=== PATIENT | male | born 1955 | race Caucasian/White ===

== ENCOUNTER 2016-06-30 06:28 | Inpatient (IN) ==
[2016-06-30] MEDS ORDERED: Lidocaine -MPF 1% 2 ML VIAL ID ONE (07:07)
[2016-06-30] MEDS ORDERED: CeFAZolin Pre 2,000 MG/100 ML 2,000 MG/100 ML BAG IVPB ONE (07:07)
[2016-06-30] MEDS ORDERED: Albuterol 2.5 MG/3 ML NEBULIZER IH ONE (07:07)
[2016-06-30] MEDS ORDERED: Albuterol 2.5 MG/3 ML NEBULIZER ONE (07:11)
[2016-06-30] MEDS ORDERED: Ringers Solution, Lactated 1,000 ML IVC SCH ×2 (07:15→11:50)
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
--- NOTE | 2016-06-30 07:37 | History & Physical Report ---
Date of Encounter: 06/30/16 Time of Encounter: 07:36 24 Hour HP Update - Instructions Instructions: If the History and Physical is less than 30 days old and was completed prior to A.M. admission and or procedure and has NOT been updated on calendar day of procedure please complete this update prior to performing procedure. - Update Patient reports changes in Medical Condition: No Changes in examination, assessment, or condition: No Changes in Medication: No Preop tests/diagnostics Reviewed: Yes Pre-Op MRSA Screen: Negative Surgery Remains Indicated: Yes Consent for Planned Operative Procedure(s) Verified: Yes - Pre-Operative Checklist Preoperative Checklist Indicated: No Prophylactic Antibiotic Ordered: Yes Home Medications Include Beta Bela: No Beta Bela Taken Today (Day of Surgery): No Beta Bela Taken Yesterday (Day Prior to Surgery): No Is VTE Prophylaxis Indicated?: Yes
[2016-06-30] MEDS ORDERED: Acetaminophen IV 1,000 MG/100 ML INFUS..BTL ONE (07:52)
[2016-06-30] MEDS ORDERED: *HR* HYDROmorphone (PF) 1 MG/ML SYRINGE IVP PRN (08:36)
[2016-06-30] MEDS ORDERED: Ondansetron 4 MG/2 ML VIAL IVP PRN (08:36)
[2016-06-30] MEDS ORDERED: Propofol 500 MG/50 ML INFUS..BTL ONE ×2 (09:30)
[2016-06-30] MEDS ORDERED: EPHEDrine 50 MG/ML VIAL ONE (09:30)
[2016-06-30] MEDS ORDERED: *HR* Midazolam HCl 2 MG/2 ML VIAL ONE (09:30)
[2016-06-30] MEDS ORDERED: Lidocaine -MPF 2% 2 ML VIAL ONE (09:30)
[2016-06-30] MEDS ORDERED: *HR* FentaNYL (PF) 100 MCG/2 ML VIAL ONE (09:30)
[2016-06-30] MEDS ORDERED: *HR* Propofol 200 MG/20 ML VIAL IVP ONE (09:30)
[2016-06-30] MEDS ORDERED: *HR* Succinylcholine 200 MG/10 ML VIAL IVP ONE (09:30)
[2016-06-30] MEDS ORDERED: *HR* Remifentanil 1 MG VIAL IVP ONE (09:30)
[2016-06-30] MEDS ORDERED: *HR* Phenylephrine 10 MG/ML VIAL ONE (09:30)
[2016-06-30] MEDS ORDERED: Ondansetron 4 MG/2 ML VIAL ONE (10:42)
--- NOTE | 2016-06-30 10:49 | Orthopedic Operative Note ---
Date of procedure: 06/30/16 Pre-op diagnosis: Cervical stenosis, cervical radiculopathy, cervical myelopathy Post-op diagnosis: same Operation/Findings: Anterior cervical decompression and fusion C3-C5:The patient was brought to the operating room and placed supine on the operating room table. Successful general endotracheal anesthesia intubation was performed. Neurophysiologic monitoring personnel placed leads on the upper and lower extremities as well as the cranium for EMG monitoring purposes. Appropriate baseline potentials were noted by the neurophysiologic monitoring staff. Navarrete catheter was placed prior to positioning. Compression boots and stockings were placed for deep vein thrombosis prophylaxis. Padding was were also placed all bony prominences including the ulnar nerve near the medial epicondyles of the elbows were appropriately padded. Mild traction was placed on the bilateral shoulders and taped into place. Preoperative antibiotics were administered. The area from the mandible bilaterally to the upper thoraces was prepped and draped in the usual sterile fashion. A transverse incision was made 2 cm proximal to the level of the cricoid cartilage which is approximately 3 cm in length and extended from the midline of the cervical spine laterally towards the sternocleidomastoid muscle on the left. We then performed standard medial approach to the carotid sheath. Sponges were used to tease the fascial medial to the sternocleidomastoid muscle while carefully controlling and palpating the carotid artery. Using careful dissection we were able to get to the level of the anterior vertebral bodies and longus coli muscles. The spinal needle was placed at the appropriate C3-4 level, and intraoperative radiograph was obtained which was a cervical spine lateral radiograph. The needle and radiograph confirmed we were at the correct C3-4 operative level. We further exposed this level by using Bovie cautery under the medial edge of the longus colli muscles to allow them to be retracted approximately 2 mm laterally on each side. An 11 blade was used to perform anterior discectomy at the appropriate C3-4 level after an initial annulotomy of the anterior longitudinal ligament and annulus was performed. Further disc material was removed with pituitary Rongeurs. Subsequently, Synthes pins were placed at the C3and C4 vertebral bodies respectively to provide distraction. We then used a Trimline cervical retractor which was placed in both medial and lateral as well as inferior superior direction to allow full visualization of the appropriate C3-4 disc and C3 and C4 vertebral bodies. The Leica microscope was brought to the field and the remainder of the procedure was performed under the guidance of this microscope. Using pituitary rongeurs and small curettes, various micro- instruments, a full discectomy was performed at the appropriate C3-4 level. The posterior longitudinal ligament was encountered and appeared partially calcified. A portion of this ligament was removed. After complete and thorough discectomy and removal of spondylitic material was performed the endplates of the C3 and C4 vertebral bodies were prepared with a bur until allow bleeding of cancellous bone. A 8mm trial graft was evaluated and appeared to fit quite well within the excised C3-4 disc space. A cortico- cancellous allograft of 8 mm was utilized, carefully tapped into place within the excised disc space with the aid of a bone tamp. It was seated approximately 2 mm from the anterior edge of the cortex of the adjacent vertebral bodies. We then turned our attention to the C4- 5 level where a similar series of procedures was performed including discectomy, removal of spondylitic material, end plate preparation, and trial grafting. A 7mm trial fit well within the C4-5 disc space. A 7 mm allograft was then placed at C4-5. A 42.5 mm cervical plate was then placed on the anterior aspect of the C3, C4 , and C5 vertebral bodies. The plate was placed in the midline position after drilling six 13 mm self tapping screws and inserting them. They were locked in place using standard Venture plate maneuvers. At this point a lateral radiograph of the cervical spine was obtained and showed satisfactory position of the graft and plate. The wound was copiously irrigated and bleeders encountered were cauterized using Bovie cautery. Platysma was closed with interrupted 2-0 Vicryl sutures. Running 3-0 Monocryl suture was used for skin closure. Sterile dressing was placed over the neck wound. A cervical collar was placed. The patient was transferred to a hospital bed and extubated. The patient was noted to be fully motor and sensory intact in the recovery room at the end of the procedure. The medications. All sponge instrument and needle counts were correct at the end of the procedure. Anesthesia: GETA Surgeon: Matthew Penaloza Jr Estimated blood loss (cc): 30 Condition: stable Disposition: PACU
[2016-06-30] MEDS: *HR* Labetalol 100 MG/20 ML MDV IVP PRN ×4 (11:39→12:10)
[2016-06-30] MEDS ORDERED: Naloxone 0.4 MG/ML INJ IVP PRN (11:50)
[2016-06-30] MEDS ORDERED: Acetaminophen 325 MG TABLET PO PRN (11:50)
[2016-06-30] MEDS ORDERED: *HR* HYDROmorphone (PF) 1 MG/ML SYRINGE ONE (11:59)
--- NOTE | 2016-06-30 12:26 | Anesthesia Evaluation Post Op ---
Date of Encounter: 06/30/16 Time of Encounter: 12:25 - Vital Signs Vital Signs: Vital Signs/O2 Sat/Glucose, Most Current Temp Pulse Resp BP Pulse Ox 06/30/16 12:12 97.3 F L 63 16 147/107 94 06/30/16 11:54 62 16 157/109 93 06/30/16 11:44 62 14 139/102 93 06/30/16 11:34 97.8 F 93 12 144/104 93 06/30/16 11:24 91 14 146/102 94 06/30/16 11:14 90 14 139/97 99 06/30/16 11:04 97.1 F L 93 16 131/99 95 - Lungs Lungs: Clear Ascult./Percussion - Airway Airway: Non-obstructed - Cardiovascular Regular Rate - Mental Status Mental Status: Alert & Oriented, Answers Appropriately - Pain Pain Scale: 2 - Nausea Vomiting Nausea Vomiting: Not Present - Hydration Hydration: Ice chips - Discharge PostOp Status: Transfer Patient to floor
[2016-06-30] MEDS: *HR* Morphine 2 MG/ML SYRINGE IVP PRN ×2 (13:23→18:45)
[2016-06-30] MEDS: *HR* OxyCODONE Immed Rel 5 MG TABLET PO PRN ×2 (16:10→22:15)
[2016-06-30] MEDS: ceFAZolin 2,000 MG in D5% in Water 100 ML IVPB SCH (16:13)
[2016-06-30] MEDS ORDERED: traZODone 50 MG TABLET PO SCH (21:00)
[2016-06-30] MEDS ORDERED: OLANZapine 10 MG TAB.RAPDIS PO SCH (21:00)
[2016-06-30] MEDS: cloZAPine 25 MG TABLET PO SCH (22:16)
[2016-07-01] MEDS: ceFAZolin 2,000 MG in D5% in Water 100 ML IVPB SCH (00:32)
[2016-07-01] MEDS: *HR* OxyCODONE Immed Rel 5 MG TABLET PO PRN ×2 (02:24→07:57)
[2016-07-01] MEDS: cloZAPine 25 MG TABLET PO SCH (07:54)
[2016-07-01] MEDS ORDERED: Nicotine 21 MG PATCH.TD24 TD SCH (09:00)
[2016-07-01 11:18] VITALS: BP 112/65
--- NOTE | 2016-07-01 14:06 | Discharge Summary ---
Date of Encounter: 07/01/16 Time of Encounter: 14:04 - Discharge Diagnosis (1) Cervical stenosis of spinal canal Priority: Primary Status: Chronic (2) Cervical myelopathy Priority: Secondary Status: Chronic - Discharge Medications Prescriptions: OxyCODONE Immed Rel [Roxicodone 5 MG] 5 mg PO Q4HR PRN #20 tablet PRN Reason: SEVERE PAIN Home Medications: Acetaminophen [Tylenol] 650 mg PO Q6HR PRN 06/30/16 [History] Albuterol Sulfate [Ventolin Hfa] 1 - 2 puff IH Q4H PRN 06/30/16 [History] Benztropine Mesylate 0.5 mg PO BID 06/30/16 [History] CloZAPine [Clozapine] 150 mg PO BID 06/30/16 [History] Docusate [Colace] 300 mg PO DAILY 06/30/16 [History] Nicotine Patch [Nicoderm] 21 mg TD DAILY 06/30/16 [History] OLANZapine [Zyprexa] 20 mg PO HS 06/30/16 [History] TraZODone 50 mg PO HS 06/30/16 [History] OxyCODONE Immed Rel [Roxicodone 5 MG] 5 mg PO Q4HR PRN #20 tablet 07/01/16 [Rx] Allergies/Adverse Reactions: Allergies No Known Allergies Allergy (Verified 06/30/16 07:08) - Impressions ITS Impressions Cervical Spine X-Ray 06/30/16 00:00 IMPRESSION: A surgical probe is at the anterior aspect of C3-4. The results were called by Dr. Bear Hernandez MD to Dr. Matthew Penaloza on 06/30/2016 at 09:09. D/ / Bear Hernandez MD / Bear Hernandez MD Interpreting Provider: Bear Hernandez MD Cervical Spine X-Ray 06/30/16 00:00 IMPRESSION: Surgical instruments within the disc space at C3-4 and C4-5 anteriorly. D/ / 06/30/2016 10:19:39 Dom Martinez MD / earnold Interpreting Provider: Dom Martinez MD Cervical Spine X-Ray 06/30/16 00:00 IMPRESSION: Status post C3-C5 cervical fusion D/ / Derick Fiore MD / Derick Fiore MD Interpreting Provider: Derick Fiore MD Date of admission: 06/30/16 11:48 Primary care physician: Eber Murrieta MD Consults: 06/30/16 11:50 Consult to Occupational Therapy [CONS] Routine Comment: Evaluate, develop and implement POC Consult to Physical Therapy [CONS] Routine Comment: Evaluate, develop and implement POC Consult to Spine Navigator [CONS] [CONS] Routine - Patient Status Disposition: Transfer SNF Condition: Good Overall status at discharge: patient is progressing back to baseline - Discharge Instructions Follow Up With: Eber Murrieta MD [Primary Care Provider] - Matthew Penaloza Jr, MD [Partnered Physician] - 07/15/16 1:00 pm Additional Instructions: Discharge Instructions: Cervical Please call [facility] ([phone]), your Primary Care Physician, or report to the ER if you have any of the following symptoms: Fever greater that 101.5, increased pain/redness/drainage/odor for your incision site or any other concerning symptoms. ACTIVITY * May Shower * No Tub Baths * No Smoking * No Swimming * No Driving * Wear Collar when up walking MEDICATIONS: Upon discharge resume your home medications. Take all the medications as prescribed. Take a stool softener if taking narcotic pain medications. Stool softeners are only effective if you drink enough fluids. Drink 6-8 glass of water or fluids a day, unless this is not allowed for another health problem. Despite using stool softeners, if you haven't had a bowel movement in 3 days, please switch to a gentle laxative. Gentle laxatives are sold over the counter. You should have a bowel movement within 24 hours, if not call the office. You will be discharged from the hospital with a prescription for pain medication. You are encouraged to decrease the use of narcotic pain medication as tolerated. Should you require a refill, please call the office. It is best to call 48-72 hours in advance of needing a prescription refill so you don't run out of medication. WOUND CARE: Leave steri-strips in place until they fall off on their own. Pat dry when you get out of the shower. FOLLOW-UP: Please follow up with your surgeon in the orthopedic clinic in 2 weeks from the day of surgery. References: [employer] (www.apta.org) - Diet and Activity Activity: as per physical therapy Diet: advance to your usual diet - Hospital Course Hospital course: Mr. Merino is a 60 year old maleThe patient had an uneventful postoperative course. Progressed from intravenous analgesic needs to oral analgesic needs only. Remained neurovascularly intact and mobilized satisfactorily. All intraoperative and/or postoperative radiographic studies were satisfactory. Patient is discharged with plan for rehabilitation and follow-up in 2 weeks post discharge on analgesic medication and patient's home medications. - Time Spent with Patient Total time spent providing and/or coordinating discharge services: - VTE Documentation of Mechanical Device: Intermittent pneumatic compression device
== END 2016-07-01 16:10 | DRG 472 ==
LOC: SAMDAY 06:28 → 3NENU 11:48
PROVIDERS: ADMIT Orthopaedic Surgery Orthopaedic Surgery of the Spine; ATTEND Orthopaedic Surgery Orthopaedic Surgery of the Spine